=== PATIENT | male | born 1995 | race Caucasian/White ===

== ENCOUNTER 2016-11-16 18:15 | Emergency (ER) | payer BC ==
[~2016-11-16] VITALS: Ht 179.1 cm; Wt 79.3 kg
[~2016-11-16 18:15] MED LIST: SERT-234 PO
[2016-11-16 18:30] VITALS: TEMP 36.7; Ht 179.1 cm; Wt 79.3 kg
[2016-11-16] MEDS ORDERED: RABIES IMMUNE GLOBULIN (HUMAN) 150 INTER.UNIT/ML 2 ML VIAL IM. ONE (19:45)
[2016-11-16] MEDS ORDERED: RABIES VACCINE (IMOVAX) HUMAN DIPL CELL 2.5 INTER.UNIT/ML SYR IM. ONE (19:45)
--- NOTE | 2016-11-16 19:47 | EMERGENCY ROOM VISIT NOTE ---
History First contact with patient: 19:28 Chief Complaint: RABIES VACCINE Stated Complaint: RABIES VACCINE, IMPAILED WISDOM TOOTH-[facility] REFERRED History of Present Illness The patient is a 21 year old male who presents to the Emergency Room with 2 complaints. The patient reports that he was potentially exposed to a bat flying around in his room 10-12 days ago. He reports that the bat was seen flying around for several days. He cannot rule out that the bat was in his room while sleeping. [facility] suggested that he come to the emergency department for evaluation of the rabies immunization series. The patient also reports an ingrown right mandibular wisdom tooth. He received a prescription for Pen-Vee K and naproxen. The patient is wanting to know if we have an oral surgeon here that can "shave off my tooth". He denies any fevers or chills, throat pain or difficulty swallowing. He rates his dental pain a 7 out of 10. Review of Systems 10 system review was performed and was negative except for pertinent positives and negatives as indicated in history of present illness Past Medical/Surgical History Medical Problems: (1) Asthma Family History Cancer Diabetes mellitus Hypertension Social History Smoking Status: Never Smoker Alcohol Use: occasionally Marital Status: single Housing Status: lives with friends Occupation Status: [employer] Current/Historical Medications Scheduled Sertraline (Zoloft), 200 MG PO HS Allergies Coded Allergies: No Known Allergies (Unverified , 11/16/16) Physical Exam Vital Signs Date Time Temp Pulse Resp B/P (MAP) Pulse Ox O2 Delivery O2 Flow Rate FiO2 11/16/16 18:30 36.7 62 18 120/72 96 Room Air Physical Exam CONSTITUTIONAL: Healthy and well nourished. Alert and oriented X 3 with positive affect. HEENT: Normocephalic, atraumatic. Pupils equal, round and reactive. No facial edema noted. OROPHARYNX: Examination of the right mandibular region does not show any gingival erythema, fluctuance or pointing. Uvula is midline. No evidence for Román's angina or retropharyngeal abscess. Negative trismus. LYMPHATICS: No submandibular or cervical chain adenopathy. NECK: Full active range of motion without discomfort. RESPIRATORY: Clear to auscultation bilaterally with no wheezing, crackles, rhonchi or stridor. CARDIOVASCULAR: Regular rate and rhythm with no murmurs, rubs or gallops. INTEGUMENTARY: No rash or other significant dermatologic conditions noted. NEUROLOGIC: No focal neurologic deficits noted. Medical Decision & Procedures ED Course Patient history and physical exam were performed. Nurse's notes were reviewed. Vital signs were reviewed and were normal. The patient was administered Imovax and HRIG 20 units per kilogram IM without adverse reaction. The patient was instructed to return on days 3, 7 and 14 for subsequent Imovax immunizations. He was instructed to follow-up with an oral surgeon to discuss further management of his dental problem. The patient was encouraged to also take Tylenol 1 g every 6-8 hours for additional pain relief. The patient voiced understanding of all discharge instructions, and rated his pain a 3 out of 10 at the conclusion of my exam. Medical Decision Impression Primary Impression: Pain, dental Additional Impression: Need for prophylactic vaccination against rabies Departure Information Referrals Joseph Gonsales D.O. (PCP) Patient Instructions My [facility] Problem Qualifiers
[2016-11-16 21:49] VITALS: BP 117/62; PULSE 72; O2SAT 98
== END 2016-11-16 21:50 | disposition home or self-care (01) ==
LOC: C.EDB 18:17 → C.EDD 21:50
DX: Z20.3 Contact with and (suspected) exposure to rabies (principal); Z23 Encounter for immunization; K08.89 Other specified disorders of teeth and supporting structures; J45.909 Unspecified asthma, uncomplicated; Z80.9 Family history of malignant neoplasm, unspecified; Z83.3 Family history of diabetes mellitus; Z82.49 Family history of ischemic heart disease and other diseases of the circulatory system; Z79.899 Other long term (current) drug therapy